=== PATIENT | female | born 1980 | race Caucasian/White ===

== ENCOUNTER 2017-10-04 18:25 | Emergency (ER) | payer MEDICAID ==
[2017-10-04 18:37] VITALS: BP 125/80
[2017-10-04] MEDS ORDERED: Diazepam 2 MG Tab PO ONE (19:45)
[2017-10-04] MEDS ORDERED: Ketorolac 60 MG/2 ML SDV IM ONE (19:45)
--- NOTE | 2017-10-04 19:51 | EDM.PDOC ---
ED HPI GENERAL MEDICAL PROBLEM - General Chief Complaint: Back Pain or Injury Stated Complaint: BACK PAIN Time Seen by Provider: 10/04/17 19:25 Source of Information: Reports: Patient History Limitations: Reports: No Limitations - History of Present Illness INITIAL COMMENTS - FREE TEXT/NARRATIVE: low back pain; this is a 36 year old female present to ER for evaluation of acute on chronic back pain. reports has spinal injection on 09/23/17 at [facility] and has appointment pending in Oct. She reports no injury, but started to have flare up of back pain with the weather changes. has throbbing sharp pain in the low back. rates pain at 10/. denies any bladder symptoms, has bowel problems but that is from IBS. denies any fever or chills. Onset: Gradual Duration: Day(s): (4 days) Location: Reports: Back, Lower Extremity, Right Quality: Reports: Sharp, Throbbing Severity: Severe Improves with: Reports: None Worsens with: Reports: None Associated Symptoms: Reports: No Other Symptoms lower back Pain Score (Numeric/FACES): 10 - Related Data Allergies Allergy/AdvReac Type Severity Reaction Status Date / Time duloxetine HCl Allergy Intermediate Swelling Verified 10/04/17 19:02 [From Cymbalta] Home Meds: Home Meds Topiramate [Topamax] 50 mg PO DAILY 07/23/13 [History] Venlafaxine [Effexor XR] 100 mg PO DAILY 07/23/13 [History] Ketorolac Tromethamine [Ketorolac Tromethamine] 10 mg PO DAILY PRN 12/26/13 [ History] Milnacipran HCl [Savella] 100 mg PO BID 11/24/16 [History] QUEtiapine [SEROquel XR] 100 mg PO BEDTIME 11/24/16 [History] LORazepam [Ativan] 0.5 mg PO Q6H PRN 08/03/17 [History] tiZANidine [Zanaflex] 2 mg PO Q6HR PRN 09/07/17 [History] Past Medical History HEENT History: Reports: Impaired Vision Gastrointestinal History: Reports: 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: Musculoskeletal History: Reports: Back Pain, Chronic, Fracture, Fibromyalgia Neurological History: Reports: Migraines Psychiatric History: Reports: Anxiety, Bipolar, Panic Attack, Psych Hospitalization(s), Suicidal Ideation, Other (See Below) Other Psychiatric History: cutter - Infectious Disease History Infectious Disease History: Reports: Chicken Pox - Past Surgical History Musculoskeletal Surgical History: Reports: Other (See Below) Other Musculoskeletal Surgeries/Procedures:: left arm surgery, pin placed Social & Family History - Tobacco Use Smoking Status *Q: Current Every Day Smoker Years of Tobacco use: 21 Packs/Tins Daily: 0.2 - Caffeine Use Caffeine Use: Reports: Tea - Recreational Drug Use Recreational Drug Use: Yes Drug Use in Last 12 Months: Yes Recreational Drug Type: Reports: Marijuana/Hashish Recreational Drug Use Frequency: Weekly ED ROS GENERAL - Review of Systems Review Of Systems: See Below Constitutional: Reports: Other (acute low back pain and muscle spams.) HEENT: Reports: No Symptoms Respiratory: Reports: No Symptoms Cardiovascular: Reports: No Symptoms Endocrine: Reports: No Symptoms GI/Abdominal: Reports: No Symptoms : Reports: No Symptoms Musculoskeletal: Reports: Back Pain, Leg Pain (right), Muscle Pain (low back) Skin: Reports: No Symptoms Neurological: Reports: No Symptoms Psychiatric: Reports: No Symptoms Hematologic/Lymphatic: Reports: No Symptoms Immunologic: Reports: No Symptoms ED EXAM, GENERAL - Physical Exam Exam: See Below Exam Limited By: No Limitations General Appearance: Alert, WD/WN, Moderate Distress Neck: Normal Inspection, Supple, Non-Tender, Full Range of Motion Respiratory/Chest: No Respiratory Distress, Lungs Clear, Normal Breath Sounds, No Accessory Muscle Use, Chest Non-Tender Cardiovascular: Normal Peripheral Pulses, Regular Rate, Rhythm, No Edema, No Murmur GI/Abdominal: Normal Bowel Sounds, Soft, Non-Tender, No Organomegaly, No Distention, No Abnormal Bruit, No Mass (Female) Exam: Deferred Rectal (Female) Exam: Deferred Back Exam: Normal Inspection, Muscle Spasm (low back; muscle tight and tense, acute pain to palpation.) Extremities: Normal Inspection, No Pedal Edema, Leg Pain (increase pain to low back bilateral with straight leg lift.) Neurological: No Motor/Sensory Deficits Psychiatric: Normal Affect, Normal Mood Skin Exam: Warm, Dry, Intact, Normal Color, No Rash Lymphatic: No Adenopathy Course - Vital Signs Last Recorded V/S: Last Vital Signs Temp 36.2 C 10/04/17 19:07 Pulse 81 10/04/17 19:07 Resp 16 10/04/17 19:07 BP 125/80 10/04/17 19:07 Pulse Ox 97 10/04/17 19:07 - Orders/Labs/Meds Meds: Medications Discontinued Medications Generic Name Dose Route Start Last Admin Trade Name Valerie PRN Reason Stop Dose Admin Diazepam 2 mg 10/04/17 19:45 10/04/17 20:13 Valium PO 10/04/17 19:46 2 mg ONETIME ONE Administration Ketorolac Tromethamine 60 mg 10/04/17 19:45 10/04/17 19:58 Toradol IM 10/04/17 19:46 60 mg ONETIME ONE Administration - Re-Assessments/Exams Free Text/Narrative Re-Assessment/Exam: 10/04/17 will give Toradol 60mg im, valium 2 mg po, will discharge to home with script for Percocet 5-325mg one every 4 to 6 hr prn pain #15 discussed lifting restrictions follow with Primary Care Provider rtc or er if not improved or symptoms worsen. Departure - Departure Time of Disposition: 20:36 Disposition: Home, Self-Care 01 Condition: Good Clinical Impression: Acute low back pain Qualifiers: Back pain laterality: bilateral Sciatica presence: with sciatica Sciatica laterality: sciatica of right side Qualified Code(s): M54.41 - Lumbago with sciatica, right side - Discharge Information Instructions: Back Pain, Adult Referrals: PCP,None [Primary Care Provider] - Forms: ED Department Discharge Care Plan Goals: Acute low back pain -Percocet 5-325mg take one tablet every 4 to 6 hours as needed for pain #15 -continue Zanaflex every 8 hours -rest, avoid any lifting over 10 pounds, pushing, pulling, banding or twisting of spine -apply heat or ice as needed for comfort Call Spine Clinic in am for recheck return to clinic or er for any increase pain,fever, chills, nausea, vomiting, diarrhea, rash or not improved. - Problem List & Annotations (1) Acute low back pain SNOMED Code(s): 795443246 Code(s): M54.5 - LOW BACK PAIN Status: Acute Priority: High Current Visit: Yes Qualifiers: Back pain laterality: bilateral Sciatica presence: with sciatica Sciatica laterality: sciatica of right side Qualified Code(s): M54.41 - Lumbago with sciatica, right side - Problem List Review Problem List Initiated/Reviewed/Updated: Yes - Assessment/Plan Plan: Acute low back pain -Percocet 5-325mg take one tablet every 4 to 6 hours as needed for pain #15 -continue Zanaflex every 8 hours -rest, avoid any lifting over 10 pounds, pushing, pulling, banding or twisting of spine -apply heat or ice as needed for comfort Call Spine Clinic in am for recheck return to clinic or er for any increase pain,fever, chills, nausea, vomiting, diarrhea, rash or not improved.
== END 2017-10-04 20:33 | disposition home or self-care (01) ==
LOC: JP.ED 18:25
DX: M54.41 Lumbago with sciatica, right side (principal); F41.0 Panic disorder [episodic paroxysmal anxiety]; F31.9 Bipolar disorder, unspecified; F17.210 Nicotine dependence, cigarettes, uncomplicated; Z79.899 Other long term (current) drug therapy; Z88.8 Allergy status to other drugs, medicaments and biological substances
CPT/HCPCS: 96372; 99283; A9270; J1885

== ENCOUNTER 2019-01-22 10:15 | Emergency (ER) | payer MEDICAID ==
[2019-01-22 10:39] VITALS: BP 116/68
[2019-01-22] MEDS ORDERED: Ketorolac 30 MG/ML SDV IVPUSH ONE (11:02)
[2019-01-22] MEDS ORDERED: HYDROmorphone 0.5 MG/0.5 ML Syringe IVPUSH ONE (12:30)
--- NOTE | 2019-01-22 12:38 | EDM.PDOC ---
<Day Walker - Last Filed: 01/22/19 14:07> ED HPI GENERAL MEDICAL PROBLEM - General Chief Complaint: Headache Stated Complaint: MIGRANE Time Seen by Provider: 01/22/19 12:15 - Related Data Allergies Allergy/AdvReac Type Severity Reaction Status Date / Time duloxetine HCl Allergy Intermediate Swelling Verified 01/22/19 10:20 [From Cymbalta] Home Meds: Home Meds Topiramate [Topamax] 50 mg PO DAILY 07/23/13 [History] Venlafaxine [Effexor XR] 100 mg PO DAILY 07/23/13 [History] Ketorolac Tromethamine 10 mg PO DAILY PRN 12/26/13 [History] QUEtiapine [SEROquel XR] 100 mg PO BEDTIME 11/24/16 [History] LORazepam [Ativan] 0.5 mg PO Q6H PRN 08/03/17 [History] Baclofen 10 mg PO TID 01/22/19 [History] oxyCODONE 5 mg PO Q4H PRN #12 tab 01/22/19 [Rx] Course - Vital Signs Last Recorded V/S: Last Vital Signs Temp 97.1 F 01/22/19 10:51 Pulse 89 01/22/19 10:51 Resp 10 L 01/22/19 10:51 BP 116/68 01/22/19 10:51 Pulse Ox 99 01/22/19 10:51 - Orders/Labs/Meds Orders: Active Orders 24 hr Category Date Time Status Brain w wo Cont [MR] Stat Exams 01/22/19 11:01 Stop Req Brain wo Cont [MR] Stat Exams 01/22/19 11:25 Ordered Meds: Medications Discontinued Medications Generic Name Dose Route Start Last Admin Trade Name Freq PRN Reason Stop Dose Admin Hydromorphone HCl 0.5 mg 01/22/19 12:30 01/22/19 12:45 Dilaudid IVPUSH 01/22/19 12:31 0.5 mg ONETIME ONE Administration Ketorolac Tromethamine 30 mg 01/22/19 11:02 01/22/19 11:17 Toradol IVPUSH 01/22/19 11:03 30 mg ONETIME ONE Administration Departure - Departure Disposition: Home, Self-Care 01 Clinical Impression: Migraine - Discharge Information Prescriptions: oxyCODONE 5 mg PO Q4H PRN #12 tab PRN Reason: Headache Instructions: Recurrent Migraine Headache, [id number] Referrals: PCP,None [Primary Care Provider] - Forms: ED Department Discharge Care Plan Goals: percocet percribed by Dr campos, keep appt in [place], [facility] if problems. - My Orders Last 24 Hours: My Active Orders 01/22/19 11:01 Brain w wo Cont [MR] Stat 01/22/19 11:25 Brain wo Cont [MR] Stat - Assessment/Plan Last 24 Hours: My Active Orders 01/22/19 11:01 Brain w wo Cont [MR] Stat 01/22/19 11:25 Brain wo Cont [MR] Stat <Reji Campos - Last Filed: 01/22/19 14:14> ED HPI GENERAL MEDICAL PROBLEM - General Source of Information: Reports: Patient, Family, RN Notes Reviewed History Limitations: Reports: No Limitations - History of Present Illness INITIAL COMMENTS - FREE TEXT/NARRATIVE: Ms. Dueñas is a 38-year-old woman who is seen in the emergency department for evaluation of persistent headache. She's had a history of migraine headaches for many years. More recently she has experienced a headache which has been persistent over the past 3 weeks. Headache is present in both temples and is similar to what she is experienced in the past, except for this headache has been more persistent and intense than what she is experienced in the past. It is of similar quality and location to previous headaches. There is some component of muscle tension associated with this in that the pain does radiate from the neck and upper back into the head. She has been seen in pain clinic in [place] and has appointment there later this week. Associated with the headache has been nausea and occasional blurred vision. She is light sensitive with the headache. She denies any other neurologic symptoms or deficits associated with this headache. 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: Musculoskeletal History: Reports: Back Pain, Chronic, Fracture, Fibromyalgia Neurological History: Reports: Migraines Psychiatric History: Reports: Anxiety, Bipolar, Panic Attack, Psych Hospitalization(s), Suicidal Ideation, Other (See Below) Other Psychiatric History: cutter - Infectious Disease History Infectious Disease History: Reports: Chicken Pox - Past Surgical History Musculoskeletal Surgical History: Reports: Other (See Below) Other Musculoskeletal Surgeries/Procedures:: left arm surgery, pin placed Social & Family History - Tobacco Use Smoking Status *Q: Current Every Day Smoker Years of Tobacco use: 23 Packs/Tins Daily: 1 Used Tobacco, but Quit: No Second Hand Smoke Exposure: Yes - Caffeine Use Caffeine Use: Reports: Tea - Recreational Drug Use Recreational Drug Use: Yes Recreational Drug Type: Reports: Marijuana/Hashish Recreational Drug Use Frequency: Weekly ED ROS GENERAL - Review of Systems Review Of Systems: See Below Constitutional: Denies: Fever, Chills HEENT: Reports: Vision Change (Occasional blurred vision) Respiratory: Reports: No Symptoms Cardiovascular: Reports: No Symptoms GI/Abdominal: Reports: No Symptoms Musculoskeletal: Reports: Neck Pain, Back Pain Neurological: Reports: Headache. Denies: Confusion, Dizziness, Numbness, Paresthesia, Pre-Existing Deficit, Difficulty Walking, Weakness, Change in Speech Psychiatric: Reports: Depression - Physical Exam Exam: See Below Exam Limited By: No Limitations General Appearance: Alert, WD/WN, Moderate Distress Nose: Normal Inspection, No Blood Throat/Mouth: Normal Inspection, Normal Lips, Normal Teeth, Normal Gums Head Exam: Atraumatic, Normocephalic Neck: Supple, Non-Tender, Full Range of Motion. No: Carotid Bruit Respiratory/Chest: No Respiratory Distress, Lungs Clear Cardiovascular: Regular Rate, Rhythm, No Edema, No Murmur GI/Abdominal: Soft, Non-Tender, No Organomegaly, No Distention Neuro Exam (Abbreviated): Alert, Oriented, CN II-XII Intact, Normal Cognition, No Motor/Sensory Deficits Back Exam: Normal Inspection, Full Range of Motion Extremities: Non-Tender, No Pedal Edema Skin Exam: Warm, Dry, No Rash Departure - Departure Time of Disposition: 14:00 - Discharge Information *PRESCRIPTION DRUG MONITORING PROGRAM REVIEWED*: Not Applicable *COPY OF PRESCRIPTION DRUG MONITORING REPORT IN PATIENT ELIZABETH: Not Applicable - Problem List & Annotations (1) Migraine headache SNOMED Code(s): 99621959 Code(s): G43.909 - MIGRAINE, UNSP, NOT INTRACTABLE, WITHOUT STATUS MIGRAINOSUS Status: Acute Current Visit: Yes - Problem List Review Problem List Initiated/Reviewed/Updated: Yes - Assessment/Plan Plan: ASSESSMENT AND PLAN MIGRAINE HEADACHE-headache is similar to previous headaches in location and quality, unusual in that it has been present now for the past 3 weeks and much more intense than usual. She is noted no obvious precipitating or relieving factors. MRI obtained today without contrast shows no significant abnormalities to explain worsening and persistent headache. She is been given IV Toradol and 1 dose of IV Dilaudid in the emergency department, with improvement in symptoms. -Oxycodone 5 mg 1 by mouth every 4 hours as needed for pain, #12 -Follow up in pain clinic [facility] later this week
--- NOTE | 2019-01-22 14:51 | MR ---
Brain wo Cont CLINICAL HISTORY: Headache , migraine COMPARISON: CT brain 2012 TECHNIQUE: Multiple axial, sagittal, and coronal images were obtained on a 1.5 T magnet with multiweighted sequences, FLAIR, and diffusion imaging without contrast. FINDINGS: There is no focal mass lesion. There is no hemmorhage or extraaxial collection. No restricted diffusion is identified.. The basal cisterns and sulci over the convexities are normal. The ventricles are normal for age. IMPRESSION: Normal noncontrast MR brain for age
== END 2019-01-22 14:19 | disposition home or self-care (01) ==
LOC: JP.ED 10:15
DX: G43.909 Migraine, unspecified, not intractable, without status migrainosus (principal); F17.210 Nicotine dependence, cigarettes, uncomplicated
CPT/HCPCS: 70551; 96374; 96375; 99283; J1170; J1885

== ENCOUNTER 2019-03-11 04:43 | Emergency (ER) | payer MEDICAID ==
[2019-03-11 05:00] VITALS: BP 138/84
[2019-03-11] MEDS ORDERED: Lactated Ringers 1,000 ML IV ONE (05:18)
[2019-03-11] MEDS ORDERED: Ketorolac 30 MG/ML SDV IVPUSH ONE (05:19)
[2019-03-11] MEDS ORDERED: Prochlorperazine 10 MG/2 ML SDV IVPUSH ONE (05:20)
[2019-03-11] MEDS ORDERED: diphenhydrAMINE 50 MG/ML SDV IVPUSH ONE (05:20)
--- NOTE | 2019-03-11 05:28 | EDM.PDOC ---
<Alvaro Thibodeaux G - Last Filed: 03/11/19 05:23> ED HPI GENERAL MEDICAL PROBLEM - General Chief Complaint: Headache Stated Complaint: HEADACHE FOR PAST SEVERAL DAYS Time Seen by Provider: 03/11/19 05:10 Source of Information: Reports: Patient, Old Records, RN History Limitations: Reports: No Limitations - History of Present Illness INITIAL COMMENTS - FREE TEXT/NARRATIVE: 38 yo female presents with a complaint of a migraine MARTÍNEZ. Gets them often and has tried many things to try and control them. Recently underwent trigger point injections and had physical therapy. Was doing OK until tonight when her MARTÍNEZ got a lot worse. Has had some vomiting with her migraines, but not recently. She denies a fever. She drove herself here, but can get a ride. Today's MARTÍNEZ is very much like prior MARTÍNEZ's she has experienced. Describes pain starting in her L axilla and then traveling up her neck to her head. Onset Date: 03/10/19 Onset Time: 23:00 Duration: Hour(s):, Constant Location: Reports: Head Quality: Reports: Ache Severity: Severe Improves with: Reports: None Worsens with: Reports: Other (unknown precipitant) Context: Reports: Other (See HPI) Associated Symptoms: Reports: Headaches, Nausea/Vomiting (no recent vomiting). 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: Other (see below) (Baclofen) migraine Pain Score (Numeric/FACES): 10 - Related Data Allergies Allergy/AdvReac Type Severity Reaction Status Date / Time duloxetine HCl Allergy Intermediate Swelling Verified 03/11/19 04:55 [From Cymbalta] Home Meds: Home Meds Venlafaxine [Effexor XR] 300 mg PO DAILY 07/23/13 [History] Ketorolac Tromethamine 10 mg PO DAILY PRN 12/26/13 [History] QUEtiapine [SEROquel XR] 50 mg PO BEDTIME 11/24/16 [History] LORazepam [Ativan] 0.5 mg PO Q6H PRN 08/03/17 [History] Baclofen 10 mg PO TID 01/22/19 [History] Past Medical History HEENT History: Reports: Impaired Vision Gastrointestinal History: Reports: 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 Syndrome 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: Musculoskeletal History: Reports: Back Pain, Chronic, Fracture, Fibromyalgia Neurological History: Reports: Migraines Psychiatric History: Reports: Anxiety, Bipolar, Panic Attack, Psych Hospitalization(s), Suicidal Ideation, Other (See Below) Other Psychiatric History: cutter - Infectious Disease History Infectious Disease History: Reports: Chicken Pox - Past Surgical History Musculoskeletal Surgical History: Reports: Other (See Below) Other Musculoskeletal Surgeries/Procedures:: left arm surgery, pin placed Social & Family History - Tobacco Use Smoking Status *Q: Current Every Day Smoker Years of Tobacco use: 20 Packs/Tins Daily: 0.2 - Caffeine Use Caffeine Use: Reports: Tea - Recreational Drug Use Recreational Drug Use: Yes Drug Use in Last 12 Months: Yes Recreational Drug Type: Reports: Marijuana/Hashish Recreational Drug Use Frequency: Socially ED ROS GENERAL - Review of Systems Review Of Systems: See Below Constitutional: Reports: No Symptoms HEENT: Reports: No Symptoms Respiratory: Reports: No Symptoms Cardiovascular: Reports: No Symptoms Endocrine: Reports: No Symptoms GI/Abdominal: Reports: Nausea. Denies: Abdominal Pain, Vomiting : Reports: No Symptoms Musculoskeletal: Reports: Neck Pain, Other (L axillary pain at start of MARTÍNEZ) Skin: Reports: No Symptoms Neurological: Reports: Dizziness (mild), Headache, Gait Disturbance (some balance trouble, not new, has this with her migraines at times). Denies: Seizure, Syncope, Trouble Speaking, Change in Speech Psychiatric: Reports: No Symptoms - Physical Exam Exam: See Below Exam Limited By: No Limitations General Appearance: Alert, WD/WN, No Apparent Distress, Thin Eye Exam: Bilateral Eye: EOMI, PERRL (pupils bilaterally dilated to ~4 mm) Ears: Normal External Exam, Normal Canal, Hearing Grossly Normal Nose: Normal Inspection, No Blood Throat/Mouth: Normal Lips, Normal Oropharynx, Normal Voice, No Airway Compromise Head Exam: Atraumatic, Normocephalic Neck: Normal Inspection Respiratory/Chest: No Respiratory Distress, Lungs Clear, Normal Breath Sounds, No Accessory Muscle Use Cardiovascular: Regular Rate, Rhythm, No Edema Neuro Exam (Abbreviated): Alert, Oriented, CN II-XII Intact, Normal Cognition, No Motor/Sensory Deficits Back Exam: Normal Inspection Extremities: Normal Inspection, Normal Range of Motion, Non-Tender, No Pedal Edema Psychiatric: Normal Affect, Normal Mood Skin Exam: Warm, Dry, Intact, Normal Color, No Rash Course - Vital Signs Last Recorded V/S: Last Vital Signs Temp 35.8 C 03/11/19 04:59 Pulse 89 03/11/19 04:59 Resp 16 03/11/19 04:59 BP 138/84 03/11/19 04:59 Pulse Ox 100 03/11/19 04:59 - Orders/Labs/Meds Meds: Medications Discontinued Medications Generic Name Dose Route Start Last Admin Trade Name Valerie PRN Reason Stop Dose Admin Diphenhydramine HCl 25 mg 03/11/19 05:20 03/11/19 05:35 Benadryl IVPUSH 03/11/19 05:21 25 mg ONETIME ONE Administration Lactated Ringer's 1,000 mls @ 1,000 mls/hr 03/11/19 05:18 03/11/19 05:38 Ringers, Lactated IV 03/11/19 06:17 1,000 mls/hr BOLUS ONE Administration Ketorolac Tromethamine 30 mg 03/11/19 05:19 03/11/19 05:34 Toradol IVPUSH 03/11/19 05:20 30 mg ONETIME ONE Administration Prochlorperazine Edisylate 8 mg 03/11/19 05:20 03/11/19 05:30 Compazine IVPUSH 03/11/19 05:21 8 mg ONETIME ONE Administration Departure - Departure Disposition: Home, Self-Care 01 Clinical Impression: Migraine - Discharge Information Referrals: PCP,None [Primary Care Provider] - Forms: ED Department Discharge Additional Instructions: The medication you received will continue to cause drowsiness for the rest of the day so you should not drive or operate machinery. <Abdoulaye Covington - Last Filed: 03/11/19 10:12> Course - Re-Assessments/Exams Free Text/Narrative Re-Assessment/Exam: 03/11/19 10:10 headache gone Departure - Departure Time of Disposition: 10:10 Condition: Fair
== END 2019-03-11 10:31 | disposition home or self-care (01) ==
LOC: JP.ED 04:43
DX: G43.909 Migraine, unspecified, not intractable, without status migrainosus (principal); F17.210 Nicotine dependence, cigarettes, uncomplicated; Z88.8 Allergy status to other drugs, medicaments and biological substances; Z79.899 Other long term (current) drug therapy
CPT/HCPCS: 96361; 96374; 96375; 99283; J0780; J1200; J1885; J7120

== ENCOUNTER 2019-04-01 04:27 | Emergency (ER) | payer MEDICAID ==
[2019-04-01] MEDS ORDERED: Ondansetron 4 MG/2 ML SDV IVPUSH ONE (05:08)
[2019-04-01] MEDS ORDERED: Ketorolac 30 MG/ML SDV IVPUSH ONE (05:10)
[2019-04-01] MEDS ORDERED: diphenhydrAMINE 50 MG/ML SDV IVPUSH ONE (05:14)
[2019-04-01] MEDS ORDERED: Prochlorperazine 10 MG/2 ML SDV IVPUSH ONE (05:15)
[2019-04-01] MEDS ORDERED: Sodium Chloride 0.9% 1,000 ML IV SCH (05:15)
[2019-04-01 05:17] VITALS: BP 106/73
--- NOTE | 2019-04-01 05:20 | EDM.PDOC ---
<Day Walker - Last Filed: 04/01/19 06:08> ED HPI GENERAL MEDICAL PROBLEM - General Chief Complaint: Headache Stated Complaint: HEADACHE Time Seen by Provider: 04/01/19 05:16 Source of Information: Reports: Patient History Limitations: Reports: No Limitations - History of Present Illness INITIAL COMMENTS - FREE TEXT/NARRATIVE: pt had felt well earlier in the day. She had a sudden onset of a severe headache. She became nauseated and did vomit several times. She had some po zoforan which she tried to take and she vomited that. Onset: Today, Sudden Duration: Hour(s): Location: Reports: Head Associated Symptoms: Reports: No Other Symptoms headache Pain Score (Numeric/FACES): 10 - Related Data Allergies Allergy/AdvReac Type Severity Reaction Status Date / Time duloxetine HCl Allergy Intermediate Swelling Verified 04/01/19 05:15 [From Cymbalta] Home Meds: Home Meds Venlafaxine [Effexor XR] 300 mg PO DAILY 07/23/13 [History] Ketorolac Tromethamine 10 mg PO DAILY PRN 12/26/13 [History] QUEtiapine [SEROquel XR] 50 mg PO BEDTIME 11/24/16 [History] LORazepam [Ativan] 0.5 mg PO Q6H PRN 08/03/17 [History] Baclofen 10 mg PO TID 01/22/19 [History] Past Medical History HEENT History: Reports: Impaired Vision Gastrointestinal History: Reports: 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: Musculoskeletal History: Reports: Back Pain, Chronic, Fracture, Fibromyalgia Neurological History: Reports: Migraines Psychiatric History: Reports: Anxiety, Bipolar, Panic Attack, Psych Hospitalization(s), Suicidal Ideation, Other (See Below) Other Psychiatric History: cutter - Infectious Disease History Infectious Disease History: Reports: Chicken Pox - Past Surgical History Musculoskeletal Surgical History: Reports: Other (See Below) Other Musculoskeletal Surgeries/Procedures:: left arm surgery, pin placed Social & Family History - Caffeine Use Caffeine Use: Reports: Tea ED ROS GENERAL - Review of Systems Review Of Systems: See Below Constitutional: Reports: No Symptoms HEENT: Reports: No Symptoms Respiratory: Reports: No Symptoms Cardiovascular: Reports: No Symptoms Endocrine: Reports: No Symptoms GI/Abdominal: Reports: Nausea, Vomiting : Reports: No Symptoms Musculoskeletal: Reports: No Symptoms Neurological: Reports: Headache, Other (pt has been having recurrent headaches. She did have botox injections X 1 and it did make some difference in that they are not coming as frequently. ) Psychiatric: Reports: No Symptoms - Physical Exam Exam: See Below Text/Narrative:: pt arrived with a acute headache and vomiting . She has been having migraines at least once per week. Exam Limited By: No Limitations General Appearance: Alert, Severe Distress Ears: Normal TMs Nose: Normal Inspection Throat/Mouth: Normal Inspection Head Exam: Atraumatic Neck: Normal Inspection Respiratory/Chest: No Respiratory Distress Cardiovascular: Regular Rate, Rhythm GI/Abdominal: Soft, Non-Tender (Female) Exam: Deferred Rectal (Female) Exam: Deferred Neuro Exam (Abbreviated): Alert, Oriented Back Exam: Normal Inspection Extremities: Normal Inspection Psychiatric: Normal Affect Course - Vital Signs Last Recorded V/S: Last Vital Signs Temp 98.0 F 04/01/19 05:17 Pulse 79 04/01/19 05:17 Resp 18 04/01/19 05:17 BP 106/73 04/01/19 05:17 Pulse Ox 98 04/01/19 05:17 - Orders/Labs/Meds Orders: Active Orders 24 hr Category Date Time Status Sodium Chloride 0.9% [Normal Saline] 1,000 ml Med 04/01/19 05:15 Active IV ASDIRECTED Medication Orders Sodium Chloride (Normal Saline) 1,000 mls @ 999 mls/hr IV ASDIRECTED PATRICK Last Admin: 04/01/19 05:36 Dose: 999 mls/hr Meds: Medications Generic Name Dose Route Start Last Admin Trade Name Freq PRN Reason Stop Dose Admin Sodium Chloride 1,000 mls @ 999 mls/hr 04/01/19 05:15 04/01/19 05:36 Normal Saline IV 999 mls/hr ASDIRECTED PATRICK Administration Discontinued Medications Generic Name Dose Route Start Last Admin Trade Name Freq PRN Reason Stop Dose Admin Dexamethasone 4 mg 04/01/19 08:42 04/01/19 10:15 Dexamethasone IVPUSH 04/01/19 08:43 4 mg ONETIME ONE Administration Diphenhydramine HCl 25 mg 04/01/19 05:14 04/01/19 05:42 Benadryl IVPUSH 04/01/19 05:15 25 mg ONETIME ONE Administration Haloperidol Lactate 2.5 mg 04/01/19 08:42 04/01/19 10:16 Haldol IVPUSH 04/01/19 08:43 2.5 mg ONETIME ONE Administration Ketorolac Tromethamine 30 mg 04/01/19 05:10 04/01/19 05:39 Toradol IVPUSH 04/01/19 05:11 30 mg ONETIME ONE Administration Ondansetron HCl 4 mg 04/01/19 05:08 04/01/19 05:36 Zofran IVPUSH 04/01/19 05:09 4 mg ONETIME ONE Administration Prochlorperazine Edisylate 5 mg 04/01/19 05:15 04/01/19 05:41 Compazine IVPUSH 04/01/19 05:16 5 mg ONETIME ONE Administration Departure - Departure Disposition: Home, Self-Care 01 Clinical Impression: Migraine headache Qualifiers: Migraine type: without aura Status migrainosus presence: without status migrainosus Intractability: not intractable Qualified Code(s): G43.009 - Migraine without aura, not intractable, without status migrainosus - Discharge Information Referrals: PCP,None [Primary Care Provider] - Forms: ED Department Discharge Additional Instructions: Continue with your regular medications, Please followup with your primary care provider in 3-5 days if not better, please call return to the emergency department with worsening of symptoms. <OfficerPrieto - Last Filed: 04/01/19 10:27> Course - Re-Assessments/Exams Free Text/Narrative Re-Assessment/Exam: 04/01/19 08:44 Took over care from Dr. Walker at 7:30 AM patient states her headache has improved some but still having significant pain would like to try other medications therefore tried to 0.5 mg Haldol in combination with 4 mg dexamethasone Departure - Departure Time of Disposition: 10:27 Condition: Fair - Assessment/Plan Plan: Assessment Acuity = acute Site and laterality = migraine type headache Etiology = unclear etiology Manifestations = none Location of injury = Home Lab values = none Plan She good improvement 1 L fluids, Compazine, Toradol, Benadryl, Haldol and dexamethasone for follow-up primary care 3-5 days if no improvement This note was dictated using [employer] voice recognition software please call with any questions on syntax or grammar.
[2019-04-01] MEDS ORDERED: Haloperidol Lactate 5 MG/ML SDV IVPUSH ONE (08:42)
[2019-04-01] MEDS ORDERED: Dexamethasone 4 MG/ML SDV IVPUSH ONE (08:42)
== END 2019-04-01 10:33 | disposition home or self-care (01) ==
LOC: JP.ED 04:27
DX: G43.009 Migraine without aura, not intractable, without status migrainosus (principal); F41.9 Anxiety disorder, unspecified; F31.9 Bipolar disorder, unspecified; F41.0 Panic disorder [episodic paroxysmal anxiety]; M54.9 Dorsalgia, unspecified; G89.29 Other chronic pain; M79.7 Fibromyalgia; Z88.8 Allergy status to other drugs, medicaments and biological substances; Z79.899 Other long term (current) drug therapy
CPT/HCPCS: 96361; 96374; 96375; 99283; J0780; J1100; J1200; J1630; J1885; J2405; J7030

== ENCOUNTER 2019-04-29 07:01 | Emergency (ER) | payer MEDICAID ==
[2019-04-29] MEDS ORDERED: Lactated Ringers 1,000 ML IV ONE (08:10)
[2019-04-29] MEDS ORDERED: Prochlorperazine 10 MG/2 ML SDV IVPUSH ONE (08:11)
[2019-04-29] MEDS ORDERED: Ketorolac 30 MG/ML SDV IVPUSH ONE (08:11)
[2019-04-29] MEDS ORDERED: Acetaminophen 325 MG Tab PO ONE (08:12)
[2019-04-29] MEDS ORDERED: Dexamethasone 4 MG/ML SDV IVPUSH ONE (08:12)
--- NOTE | 2019-04-29 09:09 | EDM.PDOC ---
ED HPI GENERAL MEDICAL PROBLEM - General Chief Complaint: Headache Stated Complaint: MIGRANE Time Seen by Provider: 04/29/19 08:20 Source of Information: Reports: Patient History Limitations: Reports: No Limitations - History of Present Illness INITIAL COMMENTS - FREE TEXT/NARRATIVE: 38-year-old with history of migraines and fibromyalgia presents concerned of recurrent migraine. She reports that symptoms started insidiously yesterday. She describes an ache in the right frontal part of her head. This does not radiate. It is described as an muscle tightness. She's had some associated vision changes, describes tunnel vision. No neck pain or stiffness. No weakness in the extremities or abnormal sensation. No fever. She describes her symptoms as her typical migraine headache. She has not tried anything at home today for her symptoms. Headache Pain Score (Numeric/FACES): 10 - Related Data Allergies Allergy/AdvReac Type Severity Reaction Status Date / Time duloxetine HCl Allergy Intermediate Swelling Verified 04/29/19 07:24 [From Cymbalta] Home Meds: Home Meds Venlafaxine [Effexor XR] 300 mg PO DAILY 07/23/13 [History] Ketorolac Tromethamine 10 mg PO DAILY PRN 12/26/13 [History] QUEtiapine [SEROquel XR] 50 mg PO BEDTIME 11/24/16 [History] LORazepam [Ativan] 0.5 mg PO Q6H PRN 08/03/17 [History] Baclofen 10 mg PO TID 01/22/19 [History] Gabapentin [Gralise] 600 mg PO BID 04/29/19 [History] Past Medical History HEENT History: Reports: Impaired Vision Gastrointestinal History: Reports: 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: Musculoskeletal History: Reports: Back Pain, Chronic, Fracture, Fibromyalgia Neurological History: Reports: Migraines Psychiatric History: Reports: Anxiety, Bipolar, Panic Attack, Psych Hospitalization(s), Suicidal Ideation, Other (See Below) Other Psychiatric History: cutter - Infectious Disease History Infectious Disease History: Reports: Chicken Pox - Past Surgical History Musculoskeletal Surgical History: Reports: Other (See Below) Other Musculoskeletal Surgeries/Procedures:: left arm surgery, pin placed Social & Family History - Caffeine Use Caffeine Use: Reports: Tea - Recreational Drug Use Recreational Drug Use: Yes Recreational Drug Type: Reports: Marijuana/Hashish Recreational Drug Use Frequency: Socially ED ROS GENERAL - Review of Systems Review Of Systems: See Below Constitutional: Reports: No Symptoms HEENT: Reports: No Symptoms Respiratory: Reports: No Symptoms Cardiovascular: Reports: No Symptoms Endocrine: Reports: No Symptoms GI/Abdominal: Reports: No Symptoms : Reports: No Symptoms Musculoskeletal: Reports: No Symptoms Skin: Reports: No Symptoms Neurological: Reports: Headache Psychiatric: Reports: No Symptoms Hematologic/Lymphatic: Reports: No Symptoms Immunologic: Reports: No Symptoms - Physical Exam Exam: See Below Exam Limited By: No Limitations General Appearance: Alert, No Apparent Distress Eye Exam: Bilateral Eye: EOMI Ears: Normal External Exam Nose: Normal Inspection Throat/Mouth: Normal Inspection Head Exam: Atraumatic, Normocephalic, Other (no temporal tenderness) Respiratory/Chest: No Respiratory Distress, Lungs Clear Cardiovascular: Normal Peripheral Pulses, Regular Rate, Rhythm GI/Abdominal: Normal Bowel Sounds, Soft, Non-Tender (Female) Exam: Normal External Exam Rectal (Female) Exam: Normal Exam, Normal Rectal Tone Neuro Exam (Abbreviated): Alert, Oriented, CN II-XII Intact, Normal Gait, No Motor/Sensory Deficits Back Exam: Normal Inspection Extremities: Normal Inspection Psychiatric: Normal Affect, Normal Mood Skin Exam: Warm, Dry Course - Vital Signs Last Recorded V/S: Last Vital Signs Temp 36.1 C 04/29/19 07:22 Pulse 60 04/29/19 09:39 Resp 14 04/29/19 09:39 BP 96/50 L 04/29/19 09:39 Pulse Ox 98 04/29/19 09:39 - Orders/Labs/Meds Meds: Medications Discontinued Medications Generic Name Dose Route Start Last Admin Trade Name Valerie PRN Reason Stop Dose Admin Acetaminophen 650 mg 04/29/19 08:12 04/29/19 08:31 Tylenol PO 04/29/19 08:13 650 mg NOW ONE Administration Dexamethasone 4 mg 04/29/19 08:12 04/29/19 08:44 Dexamethasone IVPUSH 04/29/19 08:13 4 mg ONETIME ONE Administration Lactated Ringer's 1,000 mls @ 1,000 mls/hr 04/29/19 08:10 04/29/19 08:36 Ringers, Lactated IV 04/29/19 09:09 1,000 mls/hr BOLUS ONE Administration Ketorolac Tromethamine 15 mg 04/29/19 08:11 04/29/19 08:41 Toradol IVPUSH 04/29/19 08:12 15 mg ONETIME ONE Administration Prochlorperazine Edisylate 10 mg 04/29/19 08:11 04/29/19 08:37 Compazine IVPUSH 04/29/19 08:12 10 mg ONETIME ONE Administration - Re-Assessments/Exams Free Text/Narrative Re-Assessment/Exam: 38-year-old with history of migraines presents with her typical migrainous headache. Normal vitals and physical exam, she has no neurologic deficits. No meningismus or infectious symptoms. No historical or physical exam findings to suggest vascular emergency. We are treating her symptomatically with dexamethasone, Compazine, Toradol, Tylenol, and IV fluids. she will then be appropriate for discharge with further symptomatic cares at home. 04/29/19 09:07 Departure - Departure Time of Disposition: 09:43 Disposition: Home, Self-Care 01 Clinical Impression: Migraine Qualifiers: Migraine type: without aura Status migrainosus presence: without status migrainosus Intractability: not intractable Qualified Code(s): G43.009 - Migraine without aura, not intractable, without status migrainosus - Discharge Information Instructions: Migraine Headache Referrals: PCP,None [Primary Care Provider] - Forms: ED Department Discharge Additional Instructions: Please take [id number] medications such as Tylenol or your prescribed Toradol for her symptoms. See your primary doctor if you continue to have migraine persistently. Return to the emergency department for significant worsening symptoms or new concerning symptoms such as neck pain or stiffness, weakness in extremities.
[2019-04-29 09:41] VITALS: BP 96/50
== END 2019-04-29 09:55 | disposition home or self-care (01) ==
LOC: JP.ED 07:01
DX: G43.009 Migraine without aura, not intractable, without status migrainosus (principal); F41.9 Anxiety disorder, unspecified; Z88.8 Allergy status to other drugs, medicaments and biological substances; Z79.899 Other long term (current) drug therapy
CPT/HCPCS: 96361; 96374; 96375; 99283; A9270; J0780; J1100; J1885; J7120

== ENCOUNTER 2019-05-09 13:11 | Outpatient (CLI) | payer MEDICAID ==
[~2019-05-09 13:11] MED LIST: Bupivacaine 0.5% 30 ML SDV ONE
[2019-05-09 13:44] VITALS: BP 124/82; PULSE 81
--- NOTE | 2019-05-09 17:43 | ANES ---
DATE OF SERVICE: 05/09/2019 INDICATION: Patricia is a 38-year-old female patient referred to us by Dr. Walker for trigger point injections today. She has had them several times in the past, is well aware of the risks and benefits, and wishes to proceed with trigger point injections today. Since she has a history of some nausea, vomiting, and some questionable adverse reactions to local anesthetic, we only gave her 20 mL today. Please refer to the doctor's notes for ICD-10 code and diagnosis. TECHNIQUE: The patient was then sat at the edge of the bed, wanting me to focus on her occipitals down both sides of her neck and bilateral trapezius muscles and then specifically into her right shoulder. She did have 1 trigger point. Alcohol was used to clean all of those areas. I was able to easily identify approximately 10 trigger points. 1 to 1.5 mL of 0.5% Sensorcaine was injected into those areas. More than 3 muscle groups were injected today. The patient tolerated the procedure without difficulty. Please refer to the nurse's notes for vital signs. After the appropriate amount of time, the patient will be discharged per [facility] protocol. Abhishek Lorenzo CRNA /[id number]
== END 2019-05-09 13:45 | disposition home or self-care (01) ==
LOC: JP.PAIN 13:11
PROVIDERS: ATTEND Family Medicine
DX: M79.10 Myalgia, unspecified site (principal)
CPT/HCPCS: 20553; J3490

== ENCOUNTER 2019-06-28 16:10 | Emergency (ER) | payer MEDICAID ==
[2019-06-28 16:20] VITALS: BP 96/63; PULSE 97
[2019-06-28] MEDS ORDERED: Sodium Chloride 0.9% 10 ML Syringe FLUSH PRN (16:48)
[2019-06-28] MEDS ORDERED: Ketorolac 30 MG/ML SDV IVPUSH ONE (16:48)
[2019-06-28] MEDS ORDERED: methylPREDNISolone Sodium Succinate 125 MG/2 ML SDV IVPUSH ONE (16:48)
--- NOTE | 2019-06-28 16:54 | EDM.PDOC ---
ED HPI GENERAL MEDICAL PROBLEM - General Chief Complaint: General Stated Complaint: MIGRAINE,BACK PAIN Time Seen by Provider: 06/28/19 16:35 Source of Information: Reports: Patient History Limitations: Reports: No Limitations - History of Present Illness INITIAL COMMENTS - FREE TEXT/NARRATIVE: 38-year-old female with several complaints including generalized back pain, headache, and left-sided jaw pain. The toothache is been present for a month, the back pain off and on for some time and the headaches are recurring for months as well. She has a dental appointment coming up next week and a neurology consult pending through her primary provider. She's had no fever or chills, denies nausea or vomiting, denies any inflammatory joint changes such as redness or stiffness. The headache is bitemporal, she has mild photophobia but does not look distressed. Onset: Unknown/Unsure Associated Symptoms: Reports: Headaches, Malaise. Denies: Confusion, Chest Pain , Cough, Fever/Chills, Nausea/Vomiting, Shortness of Breath - Related Data Allergies Allergy/AdvReac Type Severity Reaction Status Date / Time duloxetine HCl Allergy Intermediate Swelling Verified 06/28/19 16:25 [From [place]] Home Meds: Home Meds Venlafaxine [Effexor XR] 300 mg PO DAILY 07/23/13 [History] Ketorolac Tromethamine 10 mg PO DAILY PRN 12/26/13 [History] QUEtiapine [SEROquel XR] 50 mg PO BEDTIME 11/24/16 [History] LORazepam [Ativan] 1 mg PO Q6H PRN 08/03/17 [History] Baclofen 10 mg PO TID 01/22/19 [History] Gabapentin [Gralise] 600 mg PO BID 04/29/19 [History] Topiramate [Topiramate ER] 75 mg PO DAILY 06/13/19 [History] Past Medical History HEENT History: Reports: Impaired Vision Gastrointestinal History: Reports: 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: Musculoskeletal History: Reports: Back Pain, Chronic, Fracture, Fibromyalgia Neurological History: Reports: Migraines Psychiatric History: Reports: Anxiety, Bipolar, Panic Attack, Psych Hospitalization(s), Suicidal Ideation, Other (See Below) Other Psychiatric History: cutter - Infectious Disease History Infectious Disease History: Reports: Chicken Pox - Past Surgical History Musculoskeletal Surgical History: Reports: Other (See Below) Other Musculoskeletal Surgeries/Procedures:: left arm surgery, pin placed Social & Family History - Tobacco Use Smoking Status *Q: Current Every Day Smoker Years of Tobacco use: 23 Packs/Tins Daily: 0.1 - Caffeine Use Caffeine Use: Reports: Coffee, Soda, Tea - Recreational Drug Use Recreational Drug Use: Yes Recreational Drug Type: Reports: Marijuana/Hashish Recreational Drug Use Frequency: Weekly ED ROS GENERAL - Review of Systems Review Of Systems: See Below Constitutional: Reports: Malaise. Denies: Fever, Chills HEENT: Reports: Other (Left dental pain) Respiratory: Denies: Shortness of Breath Cardiovascular: Denies: Chest Pain Endocrine: Reports: Fatigue GI/Abdominal: Denies: Nausea, Vomiting : Reports: No Symptoms. Denies: Dysuria Musculoskeletal: Denies: Neck Pain Skin: Denies: Rash Neurological: Reports: Headache ED EXAM, GENERAL - Physical Exam Exam: See Below Exam Limited By: No Limitations General Appearance: Alert, No Apparent Distress, Other (Patient looks tired) Eye Exam: Bilateral Eye: EOMI, PERRL Throat/Mouth: Other (No significant inflammatory changes of the jaw or mucosal around the left mandibular molars, there is some tenderness to percussion of the second molar) Head: Atraumatic Respiratory/Chest: No Respiratory Distress, Lungs Clear Cardiovascular: Regular Rate, Rhythm Neurological: Alert, Oriented Psychiatric: Depressed Mood, Flat Affect Skin Exam: Warm, Dry Course - Vital Signs Last Recorded V/S: Last Vital Signs Temp 98.5 F 06/28/19 16:26 Pulse 97 06/28/19 16:26 Resp 18 06/28/19 16:26 BP 96/63 06/28/19 16:26 Pulse Ox 100 06/28/19 16:26 - Orders/Labs/Meds Meds: Medications Discontinued Medications Generic Name Dose Route Start Last Admin Trade Name Freq PRN Reason Stop Dose Admin Ketorolac Tromethamine 30 mg 06/28/19 16:48 06/28/19 17:00 Toradol IVPUSH 06/28/19 16:49 30 mg ONETIME ONE Administration Methylprednisolone Sodium Succinate 62.5 mg 06/28/19 16:48 06/28/19 16:59 Solu-Medrol IVPUSH 06/28/19 16:49 62.5 mg ONETIME ONE Administration Sodium Chloride 10 ml 06/28/19 16:48 06/28/19 17:02 Saline Flush FLUSH 10 ml ASDIRECTED PRN Administration Keep Vein Open - Re-Assessments/Exams Free Text/Narrative Re-Assessment/Exam: 06/28/19 16:53 A saline lock was started and the patient will be given 62.5 mg of Solu-Medrol along with 30 of Toradol. I believe she should restart antibiotics. 06/28/19 18:11 Patient had some mild improvement with the medications. She was able to eat a meal but still had some photophobia. She'll be discharged with 500 mg of penicillin VK 4 times a day until she finishes her dental appointment and 10 doses of Vicodin for extra pain control. She'll continue on her regular medications. Departure - Departure Time of Disposition: 18:32 Disposition: Home, Self-Care 01 Clinical Impression: Migraine headache, Dental abscess - Discharge Information Instructions: Migraine Headache, [id number] Referrals: Skinny Marin MD [Primary Care Provider] - Forms: ED Department Discharge Care Plan Goals: Take penicillin 4 times a day until your dental appointment. Continue your regular medications, add stronger pain medication as prescribed if needed. Recheck as scheduled. Return sooner if worsening despite additional treatment.
== END 2019-06-28 18:32 | disposition home or self-care (01) ==
LOC: JP.ED 16:10
DX: G43.909 Migraine, unspecified, not intractable, without status migrainosus (principal); K04.7 Periapical abscess without sinus; F41.9 Anxiety disorder, unspecified; F31.9 Bipolar disorder, unspecified; F17.210 Nicotine dependence, cigarettes, uncomplicated; Z88.8 Allergy status to other drugs, medicaments and biological substances; Z79.899 Other long term (current) drug therapy
CPT/HCPCS: 96374; 96375; 99282; J1885; J2930

== ENCOUNTER 2020-07-09 00:20 | Emergency (ER) | payer MEDICAID ==
[2020-07-09 00:47] VITALS: BP 120/84; PULSE 73
[2020-07-09] MEDS ORDERED: Haloperidol Lactate 5 MG/ML SDV IVPUSH ONE (00:53)
[2020-07-09] MEDS ORDERED: Ketorolac 30 MG/ML SDV IVPUSH ONE (00:53)
[2020-07-09] MEDS ORDERED: methylPREDNISolone Sodium Succinate 40 MG/1 ML SDV IVPUSH ONE (00:53)
--- NOTE | 2020-07-09 01:04 | EDM.PDOC ---
ED HPI GENERAL MEDICAL PROBLEM - General Chief Complaint: Headache Stated Complaint: HEADACHE Time Seen by Provider: 07/09/20 00:45 Source of Information: Reports: Patient History Limitations: Reports: No Limitations - History of Present Illness INITIAL COMMENTS - FREE TEXT/NARRATIVE: 39-year-old female with chronic headaches, arrives with a persistent headache for the last 6 days. Feels nauseous but no vomiting, has some photophobia. Her regular medications are not helping. She looks uncomfortable but not real miserable, in fact she tends to fall asleep while you are talking to her. No fevers or chills. No recent trauma. Onset: Unknown/Unsure (Symptoms have been ongoing for at least 6 days) Associated Symptoms: Reports: Loss of Appetite, Malaise. Denies: Confusion, Chest Pain, Cough, Shortness of Breath Headache Pain Score (Numeric/FACES): 10 - Related Data Allergies Allergy/AdvReac Type Severity Reaction Status Date / Time duloxetine HCl Allergy Intermediate Swelling Verified 05/28/20 15:00 [From [facility]] Home Meds: Home Meds Venlafaxine [Effexor XR] 300 mg PO DAILY 07/23/13 [History] Ketorolac Tromethamine 10 mg PO DAILY PRN 12/26/13 [History] QUEtiapine [SEROquel XR] 50 mg PO BEDTIME 11/24/16 [History] LORazepam [Ativan] 1 mg PO Q6H PRN 08/03/17 [History] Baclofen 10 mg PO TID 01/22/19 [History] Topiramate [Topiramate ER] 75 mg PO DAILY 06/13/19 [History] Ubrogepant [Ubrelvy] 50 mg PO ASDIRECTED PRN 05/14/20 [History] traMADol [Ultram] 50 mg PO Q6H PRN 07/09/20 [History] Past Medical History HEENT History: Reports: Impaired Vision Gastrointestinal History: Reports: 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: Musculoskeletal 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: Reports: Back Pain, Chronic, Fracture, Fibromyalgia Neurological History: Reports: Migraines Psychiatric History: Reports: Anxiety, Bipolar, Panic Attack, Psych Ho spitalization(s), Suicidal Ideation, Other (See Below) Other Psychiatric History: cutter - Infectious Disease History Infectious Disease History: Reports: Chicken Pox - Past Surgical History Musculoskeletal Surgical History: Reports: Other (See Below) Other Musculoskeletal Surgeries/Procedures:: left arm surgery, pin placed Social & Family History - Tobacco Use Smoking Status *Q: Current Every Day Smoker Years of Tobacco use: 22 Packs/Tins Daily: 0.4 - Caffeine Use Caffeine Use: Reports: Tea - Recreational Drug Use Recreational Drug Use: No ED ROS GENERAL - Review of Systems Review Of Systems: See Below Constitutional: Reports: Malaise. Denies: Fever, Chills HEENT: Denies: Vision Change (Has photophobia but no vision change) Respiratory: Denies: Shortness of Breath Cardiovascular: Denies: Chest Pain GI/Abdominal: Reports: Nausea. Denies: Vomiting : Reports: No Symptoms Neurological: Reports: Headache, Weakness - Physical Exam Exam: See Below Exam Limited By: No Limitations General Appearance: Alert, No Apparent Distress (Appears uncomfortable but no distress) Eye Exam: Bilateral Eye: PERRL Head Exam: Atraumatic Neck: Supple Respiratory/Chest: No Respiratory Distress Neuro Exam (Abbreviated): Alert, Oriented, No Motor/Sensory Deficits Psychiatric: Depressed Mood, Flat Affect Skin Exam: Warm, Dry Course - Vital Signs Last Recorded V/S: Last Vital Signs Temp 98.4 F 07/09/20 00:34 Pulse 73 07/09/20 00:34 Resp 14 07/09/20 00:34 BP 120/84 07/09/20 00:34 Pulse Ox 100 07/09/20 00:34 - Orders/Labs/Meds Meds: Medications Discontinued Medications Generic Name Dose Route Start Last Admin Trade Name Valerie PRN Reason Stop Dose Admin Haloperidol Lactate 5 mg 07/09/20 00:53 07/09/20 01:01 Haldol IVPUSH 07/09/20 00:54 5 mg ONETIME ONE Administration Ketorolac Tromethamine 30 mg 07/09/20 00:53 07/09/20 01:04 Toradol IVPUSH 07/09/20 00:54 30 mg ONETIME ONE Administration Methylprednisolone Sodium Succinate 40 mg 07/09/20 00:53 07/09/20 01:08 Solu-Medrol IVPUSH 07/09/20 00:54 40 mg ONETIME ONE Administration - Re-Assessments/Exams Free Text/Narrative Re-Assessment/Exam: 07/09/20 01:03 Saline lock was initiated and the patient 30 mg of IV Toradol, 5 mg of IV Haldol and 40 mils IV Solu-Medrol. 07/09/20 02:31 1 hour after the medication, the patient was sleeping soundly. When she wakes up she will be discharged. Departure - Departure Time of Disposition: 02:58 Disposition: Home, Self-Care 01 Clinical Impression: Headache Qualifiers: Headache type: unspecified Headache chronicity pattern: chronic headache Intractability: not intractable Qualified Code(s): R51 - Headache - Discharge Information Instructions: Recurrent Migraine Headache, [id number] Referrals: Skinny Marin MD [Primary Care Provider] - Forms: ED Department Discharge Care Plan Goals: Rest for the next 1 to 2 days, continue your current medications and recheck with your regular physician in 2 to 3 days if not improving satisfactorily. Return to the emergency room if worsening or concerns. Sepsis Event Note (ED) - Evaluation Sepsis Screening Result: No Definite Risk - Focused Exam Vital Signs: Vital Signs Temp Pulse Resp BP Pulse Ox 07/09/20 00:34 98.4 F 73 14 120/84 100
== END 2020-07-09 02:59 | disposition home or self-care (01) ==
LOC: JP.ED 00:20
DX: R51 Headache (principal); F41.9 Anxiety disorder, unspecified; F31.9 Bipolar disorder, unspecified; F17.210 Nicotine dependence, cigarettes, uncomplicated; Z88.8 Allergy status to other drugs, medicaments and biological substances; Z79.899 Other long term (current) drug therapy
CPT/HCPCS: 96374; 96375; 99283; J1630; J1885; J2920

== ENCOUNTER 2020-11-21 18:21 | Emergency (ER) | payer MEDICAID ==
[2020-11-21] MEDS ORDERED: Lactated Ringers 1,000 ML IV ONE (18:27)
[2020-11-21] MEDS ORDERED: Prochlorperazine 10 MG/2 ML SDV IVPUSH ONE ×2 (18:28→23:02)
[2020-11-21] MEDS ORDERED: diphenhydrAMINE 50 MG/ML SDV IVPUSH ONE (18:28)
[2020-11-21] MEDS ORDERED: Ketorolac 30 MG/ML SDV IVPUSH ONE (18:28)
--- NOTE | 2020-11-21 19:36 | EDM.PDOC ---
ED HPI GENERAL MEDICAL PROBLEM - General Chief Complaint: Headache Stated Complaint: MIGRAINS Time Seen by Provider: 11/21/20 19:15 Source of Information: Reports: Patient, Old Records History Limitations: Reports: No Limitations - History of Present Illness INITIAL COMMENTS - FREE TEXT/NARRATIVE: 39 yo female with a pHx of migraine MARTÍNEZ's presents with another that was present when she awoke today. Has had some visual changes and nausea. No vomiting, fever, or recent head injury. Is here alone, but does have a ride available. Her sx's today are typical of her prior migraines. MARTÍNEZ began on left, is now bilateral. Onset: Today Onset Date: 11/21/20 Duration: Hour(s):, Constant Location: Reports: Head Quality: Reports: Ache Severity: Severe Improves with: Reports: None Worsens with: Reports: None Context: Reports: Other (See HPI) Associated Symptoms: Reports: Headaches, Nausea/Vomiting (no vomiting). Denies: Diaphoresis, Fever/Chills, Seizure, Syncope Treatments [employer]: Reports: Other (see below) (usual meds) Headache Pain Score (Numeric/FACES): 10 - Related Data Allergies Allergy/AdvReac Type Severity Reaction Status Date / Time duloxetine HCl Allergy Intermediate Swelling Verified 11/21/20 19:04 [From Cymbalta] Home Meds: Home Meds Venlafaxine [Effexor XR] 300 mg PO DAILY 07/23/13 [History] Ketorolac Tromethamine 10 mg PO DAILY PRN 12/26/13 [History] QUEtiapine [SEROquel XR] 50 mg PO BEDTIME 11/24/16 [History] LORazepam [Ativan] 1 mg PO Q6H PRN 08/03/17 [History] Baclofen 10 mg PO TID 01/22/19 [History] Topiramate [Topiramate ER] 75 mg PO DAILY 06/13/19 [History] Ubrogepant [Ubrelvy] 50 mg PO ASDIRECTED PRN 05/14/20 [History] Past Medical History HEENT History: Reports: Impaired Vision Gastrointestinal History: Reports: 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 Syndrome 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: Musculoskeletal History: Reports: Back Pain, Chronic, Fracture, Fibromyalgia Neurological History: Reports: Migraines Psychiatric History: Reports: Anxiety, Bipolar, Panic Attack, Psych Hospitalization(s), Suicidal Ideation, Other (See Below) Other Psychiatric History: cutter - Infectious Disease History Infectious Disease History: Reports: Chicken Pox - Past Surgical History Musculoskeletal Surgical History: Reports: Other (See Below) Other Musculoskeletal Surgeries/Procedures:: left arm surgery, pin placed Social & Family History - Tobacco Use Tobacco Use Status *Q: Current Every Day Tobacco User Years of Tobacco use: 18 Packs/Tins Daily: 0.2 Used Tobacco, but Quit: No Second Hand Smoke Exposure: No - Caffeine Use Caffeine Use: Reports: Coffee, Tea - Recreational Drug Use Recreational Drug Use: Yes Drug Use in Last 12 Months: Yes Recreational Drug Type: Reports: Marijuana/Hashish Recreational Drug Use Frequency: Monthly ED ROS GENERAL - Review of Systems Review Of Systems: See Below Constitutional: Reports: No Symptoms HEENT: Reports: No Symptoms Respiratory: Reports: No Symptoms Cardiovascular: Reports: No Symptoms GI/Abdominal: Reports: Nausea. Denies: Vomiting : Reports: No Symptoms Musculoskeletal: Reports: No Symptoms Skin: Reports: No Symptoms Neurological: Reports: Headache. Denies: Confusion, Dizziness, Seizure, Syncope, Trouble Speaking, Difficulty Walking, Change in Speech - Physical Exam Exam: See Below Exam Limited By: No Limitations General Appearance: Alert, WD/WN, No Apparent Distress Eye Exam: Bilateral Eye: Normal Inspection, Other (photophobia) Ears: Normal External Exam, Hearing Grossly Normal Nose: Normal Inspection, No Blood Throat/Mouth: Normal Inspection, Normal Lips, Normal Oropharynx, Normal Voice, No Airway Compromise Head Exam: Atraumatic, Normocephalic Neck: Normal Inspection Respiratory/Chest: No Respiratory Distress, Lungs Clear, Normal Breath Sounds, No Accessory Muscle Use Cardiovascular: Regular Rate, Rhythm, No Edema GI/Abdominal: Normal Bowel Sounds, Soft, Non-Tender, No Distention Neuro Exam (Abbreviated): Alert, Oriented, CN II-XII Intact, Normal Cognition, No Motor/Sensory Deficits. No: Confused, Disoriented, Slow to Respond Back Exam: Normal Inspection. No: CVA Tenderness (R), CVA Tenderness (L) Extremities: Normal Inspection, Normal Range of Motion, Non-Tender, No Pedal Edema. No: Pedal Edema Psychiatric: Normal Affect, Normal Mood Skin Exam: Warm, Dry, Intact, Normal Color, No Rash Course - Vital Signs Last Recorded V/S: Last Vital Signs Temp 36.2 C 01/01/21 19:21 Pulse 76 11/21/20 22:06 Resp 16 11/21/20 20:45 BP 95/68 11/21/20 22:06 Pulse Ox 97 11/21/20 22:06 - Orders/Labs/Meds Meds: Medications Discontinued Medications Generic Name Dose Route Start Last Admin Trade Name Valerie PRN Reason Stop Dose Admin Diphenhydramine HCl 25 mg 11/21/20 18:28 11/21/20 19:10 Benadryl IVPUSH 11/21/20 18:29 25 mg ONETIME ONE Administration Hydromorphone HCl 1 mg 11/21/20 23:02 11/21/20 23:13 Dilaudid IVPUSH 11/21/20 23:03 1 mg ONETIME ONE Administration Lactated Ringer's 1,000 mls @ 999 mls/hr 11/21/20 18:27 11/21/20 19:05 Ringers, Lactated IV 11/21/20 19:27 999 mls/hr BOLUS ONE Administration Magnesium Sulfate 2 gm in 50 mls @ 25 mls/hr 11/21/20 20:16 11/21/20 20:27 Magnesium Sulfate In Water Premix IV 11/21/20 22:15 25 mls/hr ONETIME ONE Administration Ketorolac Tromethamine 30 mg 11/21/20 18:28 11/21/20 19:07 Toradol IVPUSH 11/21/20 18:29 30 mg ONETIME ONE Administration Prochlorperazine Edisylate 10 mg 11/21/20 18:28 11/21/20 19:13 Compazine IVPUSH 11/21/20 18:29 10 mg ONETIME ONE Administration Prochlorperazine Edisylate 5 mg 11/21/20 23:02 11/21/20 23:11 Compazine IVPUSH 11/21/20 23:03 5 mg ONETIME ONE Administration - Re-Assessments/Exams Free Text/Narrative Re-Assessment/Exam: 11/21/20 20:16 Meds and fluids are all in. Says she still has a MARTÍNEZ. Will try IV magnesium. 11/21/20 20:17 Free Text/Narrative Re-Assessment/Exam: 11/21/20 23:35 Magnesium helped a little more, but still not feeling well enough to go home she states. Free Text/Narrative Re-Assessment/Exam: 11/21/20 23:36 Compazine 5 mg IV, Dilaudid 1 mg IV, now feels well enough for discharge. Departure - Departure Time of Disposition: 23:40 Disposition: Home, Self-Care 01 Condition: Fair Clinical Impression: Migraine Qualifiers: Migraine type: unspecified Status migrainosus presence: with status migrainosus Intractability: not intractable Qualified Code(s): G43.901 - Migraine, unspecified, not intractable, with status migrainosus - Discharge Information *PRESCRIPTION DRUG MONITORING PROGRAM REVIEWED*: No *COPY OF PRESCRIPTION DRUG MONITORING REPORT IN PATIENT ELIZABETH: No Referrals: Skinny Marin MD [Primary Care Provider] - Forms: ED Department Discharge Additional Instructions: No driving tonight. Recheck as needed. Stay in communication regarding the status of your headaches with your doctors. Sepsis Event Note (ED) - Evaluation Sepsis Screening Result: No Definite Risk - Focused Exam Vital Signs: Vital Signs Temp Pulse Resp BP Pulse Ox 11/21/20 22:06 76 95/68 97 11/21/20 20:45 60 16 91/49 L 99 11/21/20 19:21 36.2 C 78 16 102/62 100
[2020-11-21] MEDS ORDERED: Magnesium Sulfate/Water 2 GM/50 ML BAG IV ONE (20:16)
[2020-11-21] MEDS ORDERED: HYDROmorphone 1 MG/ML Syringe IVPUSH ONE (23:02)
[2020-11-21 23:48] VITALS: BP 93/54; PULSE 66
== END 2020-11-21 23:48 | disposition home or self-care (01) ==
LOC: JP.ED 18:21
DX: G43.901 Migraine, unspecified, not intractable, with status migrainosus (principal); F41.9 Anxiety disorder, unspecified; F31.9 Bipolar disorder, unspecified; F17.210 Nicotine dependence, cigarettes, uncomplicated; Z88.8 Allergy status to other drugs, medicaments and biological substances; Z79.899 Other long term (current) drug therapy
CPT/HCPCS: 96365; 96366; 96375; 96376; 99284; J0780; J1170; J1200; J1885; J3475; J7120

== ENCOUNTER 2021-01-11 18:05 | Emergency (ER) | payer MEDICAID | END 2021-01-11 18:41 | disposition left against medical advice (07) | LOC: JP.ED 18:05 | DX: Z53.21 Procedure and treatment not carried out due to patient leaving prior to being seen by health care provider (principal) ==

== ENCOUNTER 2021-06-07 17:48 | Emergency (ER) | payer MEDICAID ==
[2021-06-07 18:07] VITALS: BP 117/83; PULSE 78
[2021-06-07] MEDS ORDERED: Albuterol/Ipratropium 3.0-0.5 MG/3 ML Neb Soln NEB ONE (18:44)
--- NOTE | 2021-06-07 18:45 | EDM.PDOC ---
ED HPI GENERAL MEDICAL PROBLEM - General Chief Complaint: Respiratory Problem Stated Complaint: SHORT OF BREATH AND CHEST PAIN Time Seen by Provider: 06/07/21 18:32 Source of Information: Reports: Patient, RN Notes Reviewed History Limitations: Reports: No Limitations - History of Present Illness INITIAL COMMENTS - FREE TEXT/NARRATIVE: 40-year-old female presents emergency department day complaint of shortness of breath, she states she was short of breath on and off for the last 2 weeks seems to be worse when she exerts herself has not had any fevers does get chest pain with the shortness of breath no nausea vomiting no change in bowel habits does have a cough with white sputum production Chest Pain Score (Numeric/FACES): 8 - Related Data Allergies Allergy/AdvReac Type Severity Reaction Status Date / Time duloxetine HCl Allergy Intermediate Swelling Verified 06/07/21 18:20 [From Cymbalta] risperidone Allergy Abdominal Verified 06/07/21 18:20 Cramps Home Meds: Home Meds Venlafaxine [Effexor XR] 225 mg PO DAILY 07/23/13 [History] QUEtiapine [SEROquel XR] 25 mg PO BEDTIME 11/24/16 [History] LORazepam [Ativan] 1 mg PO Q6H PRN 08/03/17 [History] Baclofen 10 mg PO TID 01/22/19 [History] Rizatriptan Benzoate [Rizatriptan] 1 mg PO DAILY PRN 04/15/21 [History] traZODone 10 mg PO BEDTIME 04/15/21 [History] Past Medical History HEENT History: Reports: Impaired Vision Gastrointestinal History: Reports: 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: Musculoskeletal History: Reports: Back Pain, Chronic, Fracture, Fibromyalgia Neurological History: Reports: Migraines Psychiatric History: Reports: Anxiety, Bipolar, Panic Attack, Psych Hospitalization(s), Suicidal Ideation, Other (See Below) Other Psychiatric History: cutter - Infectious Disease History Infectious Disease History: Reports: Chicken Pox - Past Surgical History Musculoskeletal Surgical History: Reports: Other (See Below) Other Musculoskeletal Surgeries/Procedures:: left arm surgery, pin placed Social & Family History - Tobacco Use Tobacco Use Status *Q: Current Every Day Tobacco User Years of Tobacco use: 20 Packs/Tins Daily: 0.3 - Caffeine Use Caffeine Use: Reports: Coffee, Tea ED ROS GENERAL - Review of Systems Review Of Systems: See Below Constitutional: Reports: No Symptoms Respiratory: Reports: Shortness of Breath, Cough, Sputum Cardiovascular: Reports: Dyspnea on Exertion GI/Abdominal: Reports: No Symptoms ED EXAM, GENERAL - Physical Exam Exam: See Below Exam Limited By: No Limitations General Appearance: Alert, WD/WN, No Apparent Distress Respiratory/Chest: No Respiratory Distress, Lungs Clear, Normal Breath Sounds, No Accessory Muscle Use, Chest Non-Tender Cardiovascular: Regular Rate, Rhythm, No Murmur Course - Vital Signs Last Recorded V/S: Last Vital Signs Temp 98.2 F 06/07/21 18:27 Pulse 78 06/07/21 18:27 Resp 19 06/07/21 18:27 BP 117/83 06/07/21 18:27 Pulse Ox 100 06/07/21 18:27 - Orders/Labs/Meds Orders: Active Orders 24 hr Category Date Time Status RT Aerosol Therapy [RC] ASDIRECTED Care 06/07/21 18:44 Active Chest 2V [CR] Urgent Exams 06/07/21 18:42 Taken Isolation [COMM] Stat Oth 06/07/21 18:43 Ordered Labs: Laboratory Tests 06/07/21 06/07/21 06/07/21 Range/Units 18:55 18:55 18:55 WBC 6.1 (4.5-11.0) K/uL RBC 4.22 (3.30-5.50) M/uL Hgb 11.5 L (12.0-15.0) g/dL Hct 35.2 L (36.0-48.0) % MCV 83 (80-98) fL MCH 27 (27-31) pg MCHC 33 (32-36) % Plt Count 309 (150-400) K/uL Neut % (Auto) 66.5 H (36-66) % Lymph % (Auto) 22.8 L (24-44) % [place] % (Auto) 9.4 H (2-6) % Eos % (Auto) 1.0 L (2-4) % Baso % (Auto) 0.3 (0-1) % Sodium 142 (140-148) mmol/L Potassium 4.0 (3.6-5.2) mmol/L Chloride 104 (100-108) mmol/L Carbon Dioxide 29 (21-32) mmol/L Anion Gap 9.1 (5.0-14.0) mmol/L BUN 6 L (7-18) mg/dL Creatinine 0.7 (0.6-1.0) mg/dL Est Cr Clr Drug Dosing 83.65 mL/min Estimated GFR (MDRD) > 60 (>60) Glucose 90 (74-106) mg/dL Lactic Acid 0.6 (0.4-2.0) mmol/L Calcium 8.8 (8.5-10.1) mg/dL Total Bilirubin 0.2 (0.2-1.0) mg/dL AST 13 L (15-37) U/L ALT 17 (12-78) U/L Alkaline Phosphatase 67 (46-116) U/L Troponin I < 0.017 (0.000-0.056) ng/mL Total Protein 6.8 (6.4-8.2) g/dL Albumin 4.1 (3.4-5.0) g/dL Globulin 2.7 (2.3-3.5) g/dL Albumin/Globulin Ratio 1.5 (1.2-2.2) Meds: Medications Discontinued Medications Generic Name Dose Route Start Last Admin Trade Name Freq PRN Reason Stop Dose Admin Albuterol/Ipratropium 3 ml 06/07/21 18:44 06/07/21 19:18 Albuterol/Ipratropium 3.0-0.5 Mg/3 Ml Neb Soln NEB 06/07/21 18:45 3 ml ONETIME ONE Administration Departure - Departure Time of Disposition: 20:07 Disposition: Home, Self-Care 01 Condition: Fair Clinical Impression: Dyspnea Qualifiers: Dyspnea type: dyspnea on exertion Qualified Code(s): R06.00 - Dyspnea, unspecified - Discharge Information Instructions: Shortness of Breath, Adult, [id number] Referrals: PCP,None [Primary Care Provider] - Forms: ED Department Discharge Additional Instructions: Try the albuterol inhaler as needed, please follow-up with your primary care for further evaluation call return to the emergency department worsening of symptoms Sepsis Event Note (ED) - Evaluation Sepsis Screening Result: No Definite Risk - Focused Exam Vital Signs: Vital Signs Temp Pulse Resp BP Pulse Ox 06/07/21 18:27 98.2 F 78 19 117/83 100 06/07/21 18:04 98.2 F 78 19 117/83 100 - My Orders Last 24 Hours: My Active Orders 06/07/21 18:42 Chest 2V [CR] Urgent 06/07/21 18:43 Isolation [COMM] Stat 06/07/21 18:44 RT Aerosol Therapy [RC] ASDIRECTED - Assessment/Plan Last 24 Hours: My Active Orders 06/07/21 18:42 Chest 2V [CR] Urgent 06/07/21 18:43 Isolation [COMM] Stat 06/07/21 18:44 RT Aerosol Therapy [RC] ASDIRECTED Plan: Assessment Acuity = acute Site and laterality = dyspnea Etiology = unknown Manifestations = none Location of injury = Home Lab values = CBC, CMP, troponin, lactic acid all within normal limits chest x- ray I did review films myself I cannot appreciate any acute process, the official read from radiology is pending Plan she had some improvement with the albuterol neb provided plan is to discharge home with an albuterol inhaler that she can use when she exerts herself follow- up with primary care for further evaluation This note was dictated using [employer] voice recognition software please call with any questions on syntax or grammar.
--- NOTE | 2021-06-08 11:09 | CR ---
CHEST: 2 view CLINICAL HISTORY:Left chest pain COMPARISON:2009 FINDINGS: The heart size, pulmonary vascularity and hilar structures are normal. No infiltrate effusion or pneumothorax is seen. IMPRESSION: No acute cardiopulmonary process.
== END 2021-06-07 20:41 | disposition home or self-care (01) ==
LOC: JP.ED 17:48
DX: R06.02 Shortness of breath (principal); Z88.5 Allergy status to narcotic agent; Z88.8 Allergy status to other drugs, medicaments and biological substances; Z72.0 Tobacco use
CPT/HCPCS: 36415; 71046; 71046-26; 80053; 83605; 84484; 85025; 94640; 99285-25; J7620-GY

== ENCOUNTER 2021-08-22 11:55 | Emergency (ER) | payer MEDICAID ==
--- NOTE | 2021-08-22 12:16 | EDM.PDOC ---
ED HPI GENERAL MEDICAL PROBLEM - General Chief Complaint: Upper Extremity Injury/Pain Stated Complaint: hurt left wrist Time Seen by Provider: 08/22/21 12:05 Source of Information: Reports: Patient, Old Records, RN History Limitations: Reports: No Limitations - History of Present Illness INITIAL COMMENTS - FREE TEXT/NARRATIVE: 40 yo female fell 2 d ago landing on her outstretched L hand with resulting wrist pain. Has not been seen before today for this injury. No other areas of pain. 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) - Related Data Allergies Allergy/AdvReac Type Severity Reaction Status Date / Time duloxetine HCl Allergy Intermediate Swelling Verified 08/22/21 12:12 [From Cymbalta] risperidone Allergy Abdominal Verified 08/22/21 12:12 Cramps Home Meds: Home Meds Venlafaxine [Effexor XR] 150 mg PO DAILY 07/23/13 [History] LORazepam [Ativan] 1 mg PO Q6H PRN 08/03/17 [History] Baclofen 10 mg PO TID 01/22/19 [History] Rizatriptan Benzoate [Rizatriptan] 1 mg PO DAILY PRN 04/15/21 [History] traZODone 10 mg PO BEDTIME 04/15/21 [History] ARIPiprazole [Abilify] 5 mg PO DAILY 07/08/21 [History] Past Medical History HEENT History: Reports: Impaired Vision Gastrointestinal History: Reports: 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: Musculoskeletal History: Reports: Back Pain, Chronic, Fracture, Fibromyalgia Neurological History: Reports: Migraines Psychiatric History: Reports: Anxiety, Bipolar, Panic Attack, Psych Hospitalization(s), Suicidal Ideation, Other (See Below) Other Psychiatric History: cutter - Infectious Disease History Infectious Disease History: Reports: Chicken Pox - Past Surgical History Musculoskeletal Surgical History: Reports: Other (See Below) Other Musculoskeletal Surgeries/Procedures:: left arm surgery, pin placed Social & Family History - Caffeine Use Caffeine Use: Reports: Coffee, Tea Review of Systems - Review of Systems Review Of Systems: See Below Constitutional: Reports: No Symptoms Musculoskeletal: Reports: Joint Pain (L wrist) Skin: Reports: No Symptoms Neurological: Reports: No Symptoms ED EXAM, GENERAL - Physical Exam Exam: See Below Exam Limited By: No Limitations General Appearance: Alert, WD/WN, No Apparent Distress Extremities: Normal Inspection, No Pedal Edema, Limited Range of Motion (L wrist with palpable pain). No: Normal Range of Motion, Non-Tender, Pedal Edema, Increased Warmth, Redness Neurological: Alert, Oriented, CN II-XII Intact, Normal Cognition, No Motor/Sensory Deficits Psychiatric: Normal Affect, Normal Mood Skin Exam: Warm, Dry, Intact, Normal Color, No Rash ED TRAUMA EXTREMITY PROCEDURES - Splinting Left Upper Extremity Splint Site: L wrist-[place] Pre-Procedure NV Status: Normal Post-Procedure NV Status: Normal Splint Material: Other (OrthoGlass) Splint Design: [place] (27 inches of the 3 inch width with a 3 and a 4 inch BRIAN) Applied & Form Fitted By: Provider Provider Post-Splint Application NV Check: NV Status Normal, Good Position Complications: No Course - Vital Signs Last Recorded V/S: Last Vital Signs Temp 36.2 C 08/22/21 12:25 Pulse 68 08/22/21 12:25 Resp 14 08/22/21 12:25 BP 110/70 08/22/21 12:25 Pulse Ox 100 08/22/21 12:25 - Orders/Labs/Meds Orders: Active Orders 24 hr Category Date Time Status Wrist Comp Min 3V Lt [CR] Stat Exams 08/22/21 11:57 Taken - Radiology Interpretation Free Text/Narrative:: L wrist X-ray- Departure - Departure Time of Disposition: 12:55 Disposition: Home, Self-Care 01 Condition: Fair Clinical Impression: Distal radius fracture, left Qualifiers: Encounter type: initial encounter Fracture type: closed Fracture morphology: other extra-articular Qualified Code(s): S52.552A - Other extraarticular fracture of lower end of left radius, initial encounter for closed fracture - Discharge Information *PRESCRIPTION DRUG MONITORING PROGRAM REVIEWED*: Not Applicable *COPY OF PRESCRIPTION DRUG MONITORING REPORT IN PATIENT ELIZABETH: Not Applicable Instructions: Radial Fracture Referrals: Skinny Marin MD [Primary Care Provider] - Forms: ED Department Discharge Additional Instructions: Wear splint at all times and try to keep your injury at or above your heart level. Someone will reach out to you on Tuesday about following up with Dr. Ernst our orthopedic doctor. Take ibuprofen up to 600 mg every 6 hrs and/or acetaminophen up to 650 mg every 4 hrs for pain relief. Sepsis Event Note (ED) - Focused Exam Vital Signs: Vital Signs Temp Pulse Resp BP Pulse Ox 08/22/21 12:25 36.2 C 68 14 110/70 100 08/22/21 12:15 36.2 C 68 14 110/70 100 - My Orders Last 24 Hours: My Active Orders 08/22/21 11:57 Wrist Comp Min 3V Lt [CR] Stat - Assessment/Plan Last 24 Hours: My Active Orders 08/22/21 11:57 Wrist Comp Min 3V Lt [CR] Stat
[2021-08-22 12:19] VITALS: BP 110/70; PULSE 68
--- NOTE | 2021-08-22 15:01 | CRLCR ---
For Patients: As a result of the Cures Act, medical imaging exams and procedure reports are released immediately into your electronic medical record. You may view this report before your referring provider. If you have questions, please contact your health care provider. Indication: Injury. Technique: Three views of the left wrist. Comparison: None Findings: A fracture of the distal radius is identified. This is an intra-articular fracture. No other fractures are identified. Impression: Distal radial fracture. Dictated by Ngoc Armstrong MD @ 08/22/2021 2:59:16 PM (Electronically Signed)
== END 2021-08-22 12:55 | disposition home or self-care (01) ==
LOC: JP.ED 11:55
DX: S52.552A Other extraarticular fracture of lower end of left radius, initial encounter for closed fracture (principal); Z88.8 Allergy status to other drugs, medicaments and biological substances; Z79.899 Other long term (current) drug therapy; V00.848A Other accident with standing micro-mobility pedestrian conveyance, initial encounter
CPT/HCPCS: 29125; 73110-LT; 99283-25

== ENCOUNTER 2022-03-13 19:13 | Emergency (ER) | payer MEDICAID ==
[2022-03-13] MEDS ORDERED: Ketorolac 30 MG/ML SDV IVPUSH ONE (19:55)
[2022-03-13] MEDS ORDERED: Prochlorperazine 10 MG/2 ML SDV IVPUSH ONE (19:55)
[2022-03-13] MEDS ORDERED: Dexamethasone 4 MG/ML SDV IVPUSH ONE (19:55)
[2022-03-13] MEDS ORDERED: Sodium Chloride 0.9% 10 ML Syringe FLUSH PRN (19:55)
[2022-03-13] MEDS ORDERED: Sodium Chloride 0.9% 1,000 ML IV SCH (20:00)
[2022-03-13 20:19] VITALS: BP 121/75; PULSE 115
[2022-03-13] MEDS ORDERED: Methocarbamol 500 MG Tab PO ONE (20:50)
[2022-03-13] MEDS ORDERED: LORazepam 1 MG Tab PO ONE (21:28)
== END 2022-03-13 22:08 | disposition home or self-care (01) ==
LOC: JP.ED 19:13
DX: G43.909 Migraine, unspecified, not intractable, without status migrainosus (principal); Z88.8 Allergy status to other drugs, medicaments and biological substances; Z79.899 Other long term (current) drug therapy
CPT/HCPCS: 96374; 96375; 99282; 99283-25; A9270-GY; J0780; J1100; J1885; J7030

== ENCOUNTER 2024-02-23 20:49 | Emergency (ER) | payer MEDICAID ==
[2024-02-23 21:50] VITALS: BP 102/68; PULSE 68
== END 2024-02-23 22:24 | disposition left against medical advice (07) ==
LOC: JP.ED 20:49
DX: Z53.21 Procedure and treatment not carried out due to patient leaving prior to being seen by health care provider (principal)

== ENCOUNTER 2025-04-05 15:08 | Emergency (ER) | payer MEDICAID ==
[2025-04-05 17:21] VITALS: BP 115/69; PULSE 66
[2025-04-05] MEDS: Acetaminophen/HYDROcodone 325-10 MG Tab PO ONE (17:24)
== END 2025-04-05 17:42 | disposition home or self-care (01) ==
LOC: JP.ED 15:08
DX: G89.29 Other chronic pain (principal); M54.2 Cervicalgia; J45.909 Unspecified asthma, uncomplicated; F17.200 Nicotine dependence, unspecified, uncomplicated; Z88.8 Allergy status to other drugs, medicaments and biological substances; Z79.82 Long term (current) use of aspirin; Z79.899 Other long term (current) drug therapy
CPT/HCPCS: 99283; A9270